=== PATIENT | male | born 1940 | race Caucasian/White ===

== ENCOUNTER 2016-03-13 16:44 | Emergency (ER) | payer OTHER ==
[~2016-03-13 16:44] MED LIST: ADV250INH INH; ALBU17IN2 INH; CLAR1TAB2 PO; CORE12.5 PO; FERR325T PO; GLIM2TAB PO; HYDR10TAB PO; IPRAINH INH; LASI40TA PO; LIPI10TA PO; LISI-538 PO; MICR10CA PO; NORV5TAB PO; ROXI1TAB2 PO; SITA50TAB PO; XARE20TA PO; ZEST1TAB7 PO
[2016-03-13 18:09] LABS: EOS # 0.1 K/mm3 (0.0-0.50); EOS % 1.5 % (0.0-3.0); LARGE UNSTAINED CELL # 0.1 K/mm3 (0.0-0.4); LARGE UNSTAINED CELL % 1.8 % (0.0-4.0); LYMPH # 1.1 K/mm3 (1.5-4.5); LYMPH % 21.1 % (24.0-44.0); MEAN CORPUSCULAR HEMOGLOBIN 30.7 pg (27.0-33.0); MEAN CORPUSCULAR HGB CONC 34.7 g/dl (32.0-36.5); MEAN CORPUSCULAR VOLUME 88.6 fl (80.0-96.0); MONO # 0.4 K/mm3 (0.0-0.8); MONO % 7.7 % (0.0-5.0); NEUTROPHILS # 3.3 K/mm3 (1.8-7.7); NEUTROPHILS % 66.8 % (36.0-66.0); PLATELET COUNT, AUTOMATED 204 k/mm3 (150-450); RED CELL DISTRIBUTION WIDTH 13.9 % (11.5-14.5); WHITE BLOOD COUNT 4.9 K/mm3 (4.0-10.0)
[2016-03-13 18:38] LABS: ALBUMIN 3.6 GM/DL (3.2-5.2); ALBUMIN/GLOBULIN RATIO 0.73 (1.00-1.93); ALKALINE PHOSPHATASE 132 U/L (45-117); ALT/SGPT 35 U/L (12-78); ANION GAP 7 MEQ/L (8-16); AST/SGOT 57 U/L (15-37); BILIRUBIN,TOTAL 0.8 MG/DL (0.2-1.0); BLOOD UREA NITROGEN 26 MG/DL (7-18); CALCIUM LEVEL 8.5 MG/DL (8.8-10.2); CARBON DIOXIDE LEVEL 33 MEQ/L (21-32); CHLORIDE LEVEL 102 MEQ/L (98-107); CREATININE FOR GFR 1.23 MG/DL (0.70-1.30); GLOMERULAR FILTRATION RATE > 60.0 (>42); GLUCOSE, FASTING 145 MG/DL (83-110); SODIUM LEVEL 142 MEQ/L (136-145); TOTAL PROTEIN 8.5 GM/DL (6.4-8.2)
[2016-03-13] MEDS ORDERED: ONDANSETRON 4 MG ORAL DISINTEGRATING TAB (S0181) As Ordered ONE (19:20)
--- NOTE | 2016-03-13 19:33 | EDDOCDS ---
Physician Documentation [facility] Name: Wallace Montanez Age: 75 yrs Sex: Male : 1940 Arrival Date: 03/13/2016 Time: 16:44 Bed Private MD: Zohreh Lira P Disposition: 03/13/16 19:09 Discharged to Home/Self Care. Impression: Patient's other noncompliance with medication regimen - unintentional overdose. - Condition is Stable. - Discharge Instructions: Overdose, Accidental. - Medication Reconciliation, Local Pharmacy Hours form. - Follow up: Zohreh Lira; When: Call to arrange an appointment; Reason: Further diagnostic work-up, Recheck today's complaints, Continuance of care. - Problem is new. - Symptoms have improved. Historical: - Allergies: PENICILLINS; CT DYE; Allopurinol; - Home Meds: 1. Osteo Bi-Flex 250-200 mg oral tab daily 2. Januvia 50 mg oral tab once daily 3. amlodipine 5 mg Oral tab 2 tabs once daily 4. Claritin 10 mg Oral tab 1 tab once daily 5. slow iron 1 tab daily 6. Vitamin D Oral 2000 units daily 7. atorvastatin 40 mg oral tab 1 tab once daily 8. hydrochlorothiazide 25 mg Oral tab 1 tab once daily 9. sotalol 120 mg Oral tab 0.5 tab 2 times per day 10. lisinopril 20 mg Oral tab BID 11. Lasix 40 mg Oral tab 1 tab 2 times per day 12. hydralazine 25 mg Oral tab 1 tab 2 times per day 13. Pradaxa 150 mg oral cap 1 cap 2 times per day 14. pantoprazole 40 mg oral TbEC 1 tab once daily 15. Tylenol PM 25-500 mg-mg/mL Oral soln 2 tablets nightly 16. Symbicort 160-4.5 mcg/actuation inhalation HFAA 2 puffs 2 times per day 17. ProAir HFA 90 mcg/actuation inhalation HFAA 1 puff every 4 hours 18. Tylenol Arthritis Pain 650 mg oral TbER 2 tabs every 8 hours as needed 19. Colcrys 0.6 mg oral tab take 2 tabs. After 1 hour take 1 more - PMHx: Renal insufficiency; Hypercholesterolemia; Hypertension; Gout; Asthma; Diabetes - NIDDM: controlled; Atrial Fib; atrial flutter; melanoma; - PSHx: Left hip fracture repair; Pacer placement; removal of extra bones from arm and chest; skin cancer removed from back; - Social history: Smoking status: Patient states former smoker of tobacco. Patient uses No barriers to communication noted, The patient speaks fluent Bulgarian, Speaks appropriately for age. - Family history: Not pertinent. - : The pt / caregiver states he / she is on anticoagulants: The pt / caregiver states he / she is on anticoagulants: Pradaxa (Dabigatran) Home medication list is obtained from the patient. - Exposure Risk Screening:: None identified. Vital Signs: 03/13 16:46 BP 161 / 70; Pulse 67; Resp 18 S; Temp 97.4(O); Pulse Ox 98% on R/A; Weight 127.01 kg / gr2 280.01 lbs (R); Height 5 ft. 8 in. (172.72 cm) (R); Pain 3/10; 18:51 BP 175 / 80; Pulse 88; Resp 18; Temp 99.2(TE); Pulse Ox 97% on R/A; Pain 2/10; jb5 16:46 Body Mass Index 42.57 (127.01 kg, 172.72 cm) gr2 MDM: 17:35 CBC with Diff Ordered. EDMS 17:35 Uric Acid Ordered. EDMS 17:35 Complete Comphrensive Metabolic Ordered. EDMS 18:02 Financial registration complete. gjb 18:20 CBC with Diff Reviewed. btw 18:40 Complete Comphrensive Metabolic Reviewed. btw 18:40 Uric Acid Reviewed. btw 19:28 Ondansetron ODT Oral Disintegrating Tablet 4 mg PO once; give 2 tabs to go home every 4 rs3 hrs PRN for Nausea ordered. Administered Medications: 19:28 Drug: Ondansetron ODT 4 mg [ondansetron 4 mg disintegrating tablet (1 tabs)] Route: PO; rs3 Signatures: Dispatcher [employer] Jamila Thomas RN RN jo3 So Aguero RN RN rs3 Juan Ramon Walter PA PA btTaniya Burciaga MTDD
--- NOTE | 2016-03-13 19:33 | EDDOCDS ---
Nurse's Notes [facility] Name: Wallace Montanez Age: 75 yrs Sex: Male : 1940 Arrival Date: 03/13/2016 Time: 16:44 Bed PR1 / 25 Private MD: Zohreh Lira P Diagnosis: Patient's other noncompliance with medication regimen-unintentional overdose Presentation: 03/13 17:00 Adult Sepsis Screening: The patient does not have new or worsening altered mentation. jo3 Patient's respiratory rate is less than 22. Systolic blood pressure is greater than 100. Patient has a qSOFA score of 0- Negative Sepsis Screen. Suicide/Homicide risk assessment- the patient denies having any suicidal and/or homicidal ideations and does not present with any other emotional, behavioral or mental health complaints. 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 Transition of care: patient was not received from another setting of care. 17:00 Acuity: JIN Level 3 jo3 17:00 Method Of Arrival: Walkin/Carried/Asstd jo3 17:22 Presenting complaint: Patient states: Took total of 9 0.6mg Colcrys pills from 230 jo3 yesterday afternoon to 8pm last night. Having some GI symptoms (anorexia, doesn't really want to drink). Poison control called in triage. Discussed with provider. Triage Assessment: 17:06 General: Appears in no apparent distress, Behavior is appropriate for age, cooperative. jo3 Pain: Denies pain. Neurological: Level of Consciousness is awake, alert, Oriented to person, place, time. Derm: Skin is pink, warm & dry. Historical: - Allergies: PENICILLINS; CT DYE; Allopurinol; - Home Meds: 1. Osteo Bi-Flex 250-200 mg oral tab daily 2. Januvia 50 mg oral tab once daily 3. amlodipine 5 mg Oral tab 2 tabs once daily 4. Claritin 10 mg Oral tab 1 tab once daily 5. slow iron 1 tab daily 6. Vitamin D Oral 2000 units daily 7. atorvastatin 40 mg oral tab 1 tab once daily 8. hydrochlorothiazide 25 mg Oral tab 1 tab once daily 9. sotalol 120 mg Oral tab 0.5 tab 2 times per day 10. lisinopril 20 mg Oral tab BID 11. Lasix 40 mg Oral tab 1 tab 2 times per day 12. hydralazine 25 mg Oral tab 1 tab 2 times per day 13. Pradaxa 150 mg oral cap 1 cap 2 times per day 14. pantoprazole 40 mg oral TbEC 1 tab once daily 15. Tylenol PM 25-500 mg-mg/mL Oral soln 2 tablets nightly 16. Symbicort 160-4.5 mcg/actuation inhalation HFAA 2 puffs 2 times per day 17. ProAir HFA 90 mcg/actuation inhalation HFAA 1 puff every 4 hours 18. Tylenol Arthritis Pain 650 mg oral TbER 2 tabs every 8 hours as needed 19. Colcrys 0.6 mg oral tab take 2 tabs. After 1 hour take 1 more - PMHx: Renal insufficiency; Hypercholesterolemia; Hypertension; Gout; Asthma; Diabetes - NIDDM: controlled; Atrial Fib; atrial flutter; melanoma; - PSHx: Left hip fracture repair; Pacer placement; removal of extra bones from arm and chest; skin cancer removed from back; - Social history: Smoking status: Patient states former smoker of tobacco. Patient uses No barriers to communication noted, The patient speaks fluent German, Speaks appropriately for age. - Family history: Not pertinent. - : The pt / caregiver states he / she is on anticoagulants: The pt / caregiver states he / she is on anticoagulants: Pradaxa (Dabigatran) Home medication list is obtained from the patient. - Exposure Risk Screening:: None identified. Screenin:29 Screening information is obtained from the patient. Fall risk: No risks identified. rs3 Assistance ADL's: requires no assistance with activities of daily living. Abuse/DV Screen: The patient / caregiver reports he/she is: not in a situation that causes fear, pain or injury. Nutritional screening: No deficits noted. Advance Directives: Currently, there is no health care proxy. There is no active DNR order. home support is adequate. Assessment: 19:28 General: General: Appears in no apparent distress, Behavior is appropriate for age, rs3 cooperative. 19:28 General: given zofran ODT as ordered. . Pain: Denies pain. Cardiovascular: Capillary rs3 refill < 3 seconds. Respiratory: Airway is patent Respiratory effort is even, unlabored. GI: Reports nausea, vomiting. Vital Signs: 16:46 BP 161 / 70; Pulse 67; Resp 18 S; Temp 97.4(O); Pulse Ox 98% on R/A; Weight 127.01 kg gr2 (R); Height 5 ft. 8 in. (172.72 cm) (R); Pain 3/10; 18:51 BP 175 / 80; Pulse 88; Resp 18; Temp 99.2(TE); Pulse Ox 97% on R/A; Pain 2/10; jb5 16:46 Body Mass Index 42.57 (127.01 kg, 172.72 cm) gr2 Vitals: 16:46 Log In Time: March 13, 2016 at 16:46. RN notified that patient meets Red Flag gr2 criteria. ED Course: 16:45 Patient visited by Cely Rodriguez. gr2 16:45 Patient moved to Waiting gr2 16:46 Zohreh Lira is Private Physician. gr2 16:48 Patient visited by Cely Rodriguez. gr2 16:48 Patient moved to Pre RCE gr2 17:00 Triage Initiated jo3 17:15 Patient visited by Jamila Hannon RN. jo3 17:16 Patient moved to Triage 1 jo3 17:21 Jamila Hannon,RN is Primary Nurse. jo3 17:25 Juan Ramon Walter PA is PHCP. btw 17:25 Soha Rajput MD is Attending Physician. btw 17:26 Patient visited by Juan Ramon Walter PA. btw 17:59 Complete Comphrensive Metabolic Sent. js15 17:59 Uric Acid Sent. js15 17:59 CBC with Diff Sent. js15 18:00 Patient moved to TR5 js15 18:41 Patient moved to PR1 / 25 js15 18:51 Patient visited by Koki Johnson PCA. jb5 18:51 Patient visited by Koki Johnson PCA. jb5 19:08 Zohreh Lira is Referral Physician. btw Administered Medications: 19:28 Drug: Ondansetron ODT 4 mg [ondansetron 4 mg disintegrating tablet (1 tabs)] Route: PO; rs3 Order Results: Lab Order: CBC with Diff; SPEC'M 03/13/16 17:58 Test: WHITE BLOOD COUNT; Value: 4.9; Range: 4.0-10.0; Units: K/mm3; Status: F Test: RED BLOOD COUNT; Value: 4.30; Range: 4.30-6.10; Units: M/mm3; Status: F Test: HEMOGLOBIN; Value: 13.2; Range: 14.0-18.0; Abnormal: Below low normal; Units: g/dl; Status: F Test: HEMATOCRIT; Value: 38.1; Range: 42.0-52.0; Abnormal: Below low normal; Units: %; Status: F Test: MEAN CORPUSCULAR VOLUME; Value: 88.6; Range: 80.0-96.0; Units: fl; Status: F Test: MEAN CORPUSCULAR HEMOGLOBIN; Value: 30.7; Range: 27.0-33.0; Units: pg; Status: F Test: MEAN CORPUSCULAR HGB CONC; Value: 34.7; Range: 32.0-36.5; Units: g/dl; Status: F Test: RED CELL DISTRIBUTION WIDTH; Value: 13.9; Range: 11.5-14.5; Units: %; Status: F Test: PLATELET COUNT, AUTOMATED; Value: 204; Range: 150-450; Units: k/mm3; Status: F Test: NEUTROPHILS %; Value: 66.8; Range: 36.0-66.0; Abnormal: Above high normal; Units: %; Status: F Test: LYMPH %; Value: 21.1; Range: 24.0-44.0; Abnormal: Below low normal; Units: %; Status: F Test: MONO %; Value: 7.7; Range: 0.0-5.0; Abnormal: Above high normal; Units: %; Status: F Test: EOS %; Value: 1.5; Range: 0.0-3.0; Units: %; Status: F Test: BASO %; Value: 1.0; Range: 0.0-1.0; Units: %; Status: F Test: LARGE UNSTAINED CELL %; Value: 1.8; Range: 0.0-4.0; Units: %; Status: F Test: NEUTROPHILS #; Value: 3.3; Range: 1.8-7.7; Units: K/mm3; Status: F Test: LYMPH #; Value: 1.1; Range: 1.5-4.5; Abnormal: Below low normal; Units: K/mm3; Status: F Test: MONO #; Value: 0.4; Range: 0.0-0.8; Units: K/mm3; Status: F Test: EOS #; Value: 0.1; Range: 0.0-0.50; Units: K/mm3; Status: F Test: BASO #; Value: 0.0; Range: 0.0-0.2; Units: K/mm3; Status: F Test: LARGE UNSTAINED CELL #; Value: 0.1; Range: 0.0-0.4; Units: K/mm3; Status: F Lab Order: Uric Acid; SPEC'M 03/13/16 17:58 Test: URIC ACID; Value: 7.0; Range: 3.5-7.2; Units: MG/DL; Status: F Lab Order: Complete Comphrensive Metabolic; SPEC'M 03/13/16 17:58 Test: GLUCOSE, FASTING; Value: 145; Range: 83-110; Abnormal: Above high normal; Units: MG/DL; Status: F Test: BLOOD UREA NITROGEN; Value: 26; Range: 7-18; Abnormal: Above high normal; Units: MG/DL; Status: F Test: CREATININE FOR GFR; Value: 1.23; Range: 0.70-1.30; Units: MG/DL; Status: F Test: GLOMERULAR FILTRATION RATE; Value: > 60.0; Range: >42; Status: F Test: SODIUM LEVEL; Value: 142; Range: 136-145; Units: MEQ/L; Status: F Test: POTASSIUM SERUM; Value: 3.0; Range: 3.5-5.1; Abnormal: Below low normal; Units: MEQ/L; Status: F Test: CHLORIDE LEVEL; Value: 102; Range: 98-107; Units: MEQ/L; Status: F Test: CARBON DIOXIDE LEVEL; Value: 33; Range: 21-32; Abnormal: Above high normal; Units: MEQ/L; Status: F Test: ANION GAP; Value: 7; Range: 8-16; Abnormal: Below low normal; Units: MEQ/L; Status: F Test: CALCIUM LEVEL; Value: 8.5; Range: 8.8-10.2; Abnormal: Below low normal; Units: MG/DL; Status: F Test: AST/SGOT; Value: 57; Range: 15-37; Abnormal: Above high normal; Units: U/L; Status: F Test: ALT/SGPT; Value: 35; Range: 12-78; Units: U/L; Status: F Test: ALKALINE PHOSPHATASE; Value: 132; Range: 45-117; Abnormal: Above high normal; Units: U/L; Status: F Test: BILIRUBIN,TOTAL; Value: 0.8; Range: 0.2-1.0; Units: MG/DL; Status: F Test: TOTAL PROTEIN; Value: 8.5; Range: 6.4-8.2; Abnormal: Above high normal; Units: GM/DL; Status: F Test: ALBUMIN; Value: 3.6; Range: 3.2-5.2; Units: GM/DL; Status: F Test: ALBUMIN/GLOBULIN RATIO; Value: 0.73; Range: 1.00-1.93; Abnormal: Below low normal; Status: F Test Note: ; Units are mL/min/1.73 m2 Chronic Kidney Disease Staging per NKF: Stage I & II GFR >=60 Normal to Mildly Decreased Stage III GFR 30-59 Moderately Decreased Stage IV GFR 15-29 Severely Decreased Stage V GFR <15 Very Little GFR Left ESRD GFR <15 on AGENT SPA DESK Outcome: 19:09 Discharge ordered by Provider. btw 19:32 Patient left the ED. rs3 Signatures: Koki Johnson PCA EGG PASTEURIZER jb5 Jamila Hannon RN RN jo3 So Aguero RN RN rs3 Juan Ramon Walter PA PA btw Cely Rodriguez gr2 Oneyda Coleman,RN RN js15 Corrections: (The following items were deleted from the chart) 19:29 17:21 General: momo rs3 MTDD
--- NOTE | 2016-03-15 20:33 | EDDOCDS ---
Physician Documentation [facility] Name: Wallace Montanez Age: 75 yrs Sex: Male : 1940 Arrival Date: 03/13/2016 Time: 16:44 Bed Private MD: Zohreh Lira P Disposition: 03/13/16 19:09 Discharged to Home/Self Care. Impression: Patient's other noncompliance with medication regimen - unintentional overdose. - Condition is Stable. - Discharge Instructions: Overdose, Accidental. - Medication Reconciliation, Local Pharmacy Hours form. - Follow up: Zohreh Lira; When: Call to arrange an appointment; Reason: Further diagnostic work-up, Recheck today's complaints, Continuance of care. - Problem is new. - Symptoms have improved. Historical: - Allergies: PENICILLINS; CT DYE; Allopurinol; - Home Meds: 1. Osteo Bi-Flex 250-200 mg oral tab daily 2. Januvia 50 mg oral tab once daily 3. amlodipine 5 mg Oral tab 2 tabs once daily 4. Claritin 10 mg Oral tab 1 tab once daily 5. slow iron 1 tab daily 6. Vitamin D Oral 2000 units daily 7. atorvastatin 40 mg oral tab 1 tab once daily 8. hydrochlorothiazide 25 mg Oral tab 1 tab once daily 9. sotalol 120 mg Oral tab 0.5 tab 2 times per day 10. lisinopril 20 mg Oral tab BID 11. Lasix 40 mg Oral tab 1 tab 2 times per day 12. hydralazine 25 mg Oral tab 1 tab 2 times per day 13. Pradaxa 150 mg oral cap 1 cap 2 times per day 14. pantoprazole 40 mg oral TbEC 1 tab once daily 15. Tylenol PM 25-500 mg-mg/mL Oral soln 2 tablets nightly 16. Symbicort 160-4.5 mcg/actuation inhalation HFAA 2 puffs 2 times per day 17. ProAir HFA 90 mcg/actuation inhalation HFAA 1 puff every 4 hours 18. Tylenol Arthritis Pain 650 mg oral TbER 2 tabs every 8 hours as needed 19. Colcrys 0.6 mg oral tab take 2 tabs. After 1 hour take 1 more - PMHx: Renal insufficiency; Hypercholesterolemia; Hypertension; Gout; Asthma; Diabetes - NIDDM: controlled; Atrial Fib; atrial flutter; melanoma; - PSHx: Left hip fracture repair; Pacer placement; removal of extra bones from arm and chest; skin cancer removed from back; - Social history: Smoking status: Patient states former smoker of tobacco. Patient uses No barriers to communication noted, The patient speaks fluent Kazakh, Speaks appropriately for age. - Family history: Not pertinent. - : The pt / caregiver states he / she is on anticoagulants: The pt / caregiver states he / she is on anticoagulants: Pradaxa (Dabigatran) Home medication list is obtained from the patient. - Exposure Risk Screening:: None identified. Vital Signs: 03/13 16:46 BP 161 / 70; Pulse 67; Resp 18 S; Temp 97.4(O); Pulse Ox 98% on R/A; Weight 127.01 kg / gr2 280.01 lbs (R); Height 5 ft. 8 in. (172.72 cm) (R); Pain 3/10; 18:51 BP 175 / 80; Pulse 88; Resp 18; Temp 99.2(TE); Pulse Ox 97% on R/A; Pain 2/10; jb5 16:46 Body Mass Index 42.57 (127.01 kg, 172.72 cm) gr2 MDM: 17:35 CBC with Diff Ordered. EDMS 17:35 Uric Acid Ordered. EDMS 17:35 Complete Comphrensive Metabolic Ordered. EDMS 18:02 Financial registration complete. gjb 18:20 CBC with Diff Reviewed. btw 18:40 Complete Comphrensive Metabolic Reviewed. btw 18:40 Uric Acid Reviewed. btw 19:28 Ondansetron ODT Oral Disintegrating Tablet 4 mg PO once; give 2 tabs to go home every 4 rs3 hrs PRN for Nausea ordered. 19:34 [facility] was scanned into [employer] and attached to record. gjb 03/14 06:59 T-Sheet-- Draft Copy was scanned into [employer] and attached to record. [facility] Administered Medications: 03/13 19:28 Drug: Ondansetron ODT 4 mg [ondansetron 4 mg disintegrating tablet (1 tabs)] Route: PO; rs3 Signatures: Dispatcher [employer] EDMS Jamila Hannon RN RN So Bansal RN RN rs3 Juan Ramon Walter PA PA btw Beck, Gabriela gjb Hoffert, Sarah seh The chart was reviewed and I authenticate all verbal orders and agree with the evaluation and treatment provided.Attachments: 19:34 [facility] Payment Agreement gjb 03/14 06:59 T-Sheet-- Draft Copy [facility] Chart Complete MTDD
--- NOTE | 2016-03-15 20:33 | EDDOCDS ---
Nurse's Notes [facility] Name: Wallace Montanez Age: 75 yrs Sex: Male : 1940 Arrival Date: 03/13/2016 Time: 16:44 Bed PR1 / 25 Private MD: Zorheh Lira P Diagnosis: Patient's other noncompliance with medication regimen-unintentional overdose Presentation: 03/13 17:00 Adult Sepsis Screening: The patient does not have new or worsening altered mentation. jo3 Patient's respiratory rate is less than 22. Systolic blood pressure is greater than 100. Patient has a qSOFA score of 0- Negative Sepsis Screen. Suicide/Homicide risk assessment- the patient denies having any suicidal and/or homicidal ideations and does not present with any other emotional, behavioral or mental health complaints. Status: Patient is not a hr shared services consultant or dependent. Transition of care: patient was not received from another setting of care. 17:00 Acuity: JIN Level 3 jo3 17:00 Method Of Arrival: Walkin/Carried/Asstd jo3 17:22 Presenting complaint: Patient states: Took total of 9 0.6mg Colcrys pills from 230 jo3 yesterday afternoon to 8pm last night. Having some GI symptoms (anorexia, doesn't really want to drink). Poison control called in triage. Discussed with provider. Triage Assessment: 17:06 General: Appears in no apparent distress, Behavior is appropriate for age, cooperative. jo3 Pain: Denies pain. Neurological: Level of Consciousness is awake, alert, Oriented to person, place, time. Derm: Skin is pink, warm & dry. Historical: - Allergies: PENICILLINS; CT DYE; Allopurinol; - Home Meds: 1. Osteo Bi-Flex 250-200 mg oral tab daily 2. Januvia 50 mg oral tab once daily 3. amlodipine 5 mg Oral tab 2 tabs once daily 4. Claritin 10 mg Oral tab 1 tab once daily 5. slow iron 1 tab daily 6. Vitamin D Oral 2000 units daily 7. atorvastatin 40 mg oral tab 1 tab once daily 8. hydrochlorothiazide 25 mg Oral tab 1 tab once daily 9. sotalol 120 mg Oral tab 0.5 tab 2 times per day 10. lisinopril 20 mg Oral tab BID 11. Lasix 40 mg Oral tab 1 tab 2 times per day 12. hydralazine 25 mg Oral tab 1 tab 2 times per day 13. Pradaxa 150 mg oral cap 1 cap 2 times per day 14. pantoprazole 40 mg oral TbEC 1 tab once daily 15. Tylenol PM 25-500 mg-mg/mL Oral soln 2 tablets nightly 16. Symbicort 160-4.5 mcg/actuation inhalation HFAA 2 puffs 2 times per day 17. ProAir HFA 90 mcg/actuation inhalation HFAA 1 puff every 4 hours 18. Tylenol Arthritis Pain 650 mg oral TbER 2 tabs every 8 hours as needed 19. Colcrys 0.6 mg oral tab take 2 tabs. After 1 hour take 1 more - PMHx: Renal insufficiency; Hypercholesterolemia; Hypertension; Gout; Asthma; Diabetes - NIDDM: controlled; Atrial Fib; atrial flutter; melanoma; - PSHx: Left hip fracture repair; Pacer placement; removal of extra bones from arm and chest; skin cancer removed from back; - Social history: Smoking status: Patient states former smoker of tobacco. Patient uses No barriers to communication noted, The patient speaks fluent Romanian, Speaks appropriately for age. - Family history: Not pertinent. - : The pt / caregiver states he / she is on anticoagulants: The pt / caregiver states he / she is on anticoagulants: Pradaxa (Dabigatran) Home medication list is obtained from the patient. - Exposure Risk Screening:: None identified. Screenin:29 Screening information is obtained from the patient. Fall risk: No risks identified. rs3 Assistance ADL's: requires no assistance with activities of daily living. Abuse/DV Screen: The patient / caregiver reports he/she is: not in a situation that causes fear, pain or injury. Nutritional screening: No deficits noted. Advance Directives: Currently, there is no health care proxy. There is no active DNR order. home support is adequate. Assessment: 19:28 General: General: Appears in no apparent distress, Behavior is appropriate for age, rs3 cooperative. 19:28 General: given zofran ODT as ordered. . Pain: Denies pain. Cardiovascular: Capillary rs3 refill < 3 seconds. Respiratory: Airway is patent Respiratory effort is even, unlabored. GI: Reports nausea, vomiting. Vital Signs: 16:46 BP 161 / 70; Pulse 67; Resp 18 S; Temp 97.4(O); Pulse Ox 98% on R/A; Weight 127.01 kg gr2 (R); Height 5 ft. 8 in. (172.72 cm) (R); Pain 3/10; 18:51 BP 175 / 80; Pulse 88; Resp 18; Temp 99.2(TE); Pulse Ox 97% on R/A; Pain 2/10; jb5 16:46 Body Mass Index 42.57 (127.01 kg, 172.72 cm) gr2 Vitals: 16:46 Log In Time: March 13, 2016 at 16:46. RN notified that patient meets Red Flag gr2 criteria. ED Course: 16:45 Patient visited by Cely Rodriguez. gr2 16:45 Patient moved to Waiting gr2 16:46 Zohreh Lira is Private Physician. gr2 16:48 Patient visited by Cely Rodriguez. gr2 16:48 Patient moved to Pre RCE gr2 17:00 Triage Initiated jo3 17:15 Patient visited by Jamila Hannon RN. jo3 17:16 Patient moved to Triage 1 jo3 17:21 Jamila Hannon,RN is Primary Nurse. jo3 17:25 Juan Ramon Walter PA is PHCP. btw 17:25 Soha Rajput MD is Attending Physician. btw 17:26 Patient visited by Juan Ramon Walter PA. btw 17:59 Complete Comphrensive Metabolic Sent. js15 17:59 Uric Acid Sent. js15 17:59 CBC with Diff Sent. js15 18:00 Patient moved to TR5 js15 18:41 Patient moved to PR1 / 25 js15 18:51 Patient visited by Koki Johnson PCA. jb5 18:51 Patient visited by Koik Johnson PCA. jb5 19:08 Zohreh Lira is Referral Physician. btw 19:33 Patient name changed from Wallace\S\\S\Tarik\S\ to Wallace\S\ \S\Tarik. EDMS 19:34 [facility] Payment Agreement was scanned into [employer] and attached to record. gjb 03/14 06:59 T-Sheet-- Draft Copy was scanned into [employer] and attached to record. seignacio Administered Medications: 03/13 19:28 Drug: Ondansetron ODT 4 mg [ondansetron 4 mg disintegrating tablet (1 tabs)] Route: PO; rs3 Order Results: Lab Order: CBC with Diff; SPEC'M 03/13/16 17:58 Test: WHITE BLOOD COUNT; Value: 4.9; Range: 4.0-10.0; Units: K/mm3; Status: F Test: RED BLOOD COUNT; Value: 4.30; Range: 4.30-6.10; Units: M/mm3; Status: F Test: HEMOGLOBIN; Value: 13.2; Range: 14.0-18.0; Abnormal: Below low normal; Units: g/dl; Status: F Test: HEMATOCRIT; Value: 38.1; Range: 42.0-52.0; Abnormal: Below low normal; Units: %; Status: F Test: MEAN CORPUSCULAR VOLUME; Value: 88.6; Range: 80.0-96.0; Units: fl; Status: F Test: MEAN CORPUSCULAR HEMOGLOBIN; Value: 30.7; Range: 27.0-33.0; Units: pg; Status: F Test: MEAN CORPUSCULAR HGB CONC; Value: 34.7; Range: 32.0-36.5; Units: g/dl; Status: F Test: RED CELL DISTRIBUTION WIDTH; Value: 13.9; Range: 11.5-14.5; Units: %; Status: F Test: PLATELET COUNT, AUTOMATED; Value: 204; Range: 150-450; Units: k/mm3; Status: F Test: NEUTROPHILS %; Value: 66.8; Range: 36.0-66.0; Abnormal: Above high normal; Units: %; Status: F Test: LYMPH %; Value: 21.1; Range: 24.0-44.0; Abnormal: Below low normal; Units: %; Status: F Test: MONO %; Value: 7.7; Range: 0.0-5.0; Abnormal: Above high normal; Units: %; Status: F Test: EOS %; Value: 1.5; Range: 0.0-3.0; Units: %; Status: F Test: BASO %; Value: 1.0; Range: 0.0-1.0; Units: %; Status: F Test: LARGE UNSTAINED CELL %; Value: 1.8; Range: 0.0-4.0; Units: %; Status: F Test: NEUTROPHILS #; Value: 3.3; Range: 1.8-7.7; Units: K/mm3; Status: F Test: LYMPH #; Value: 1.1; Range: 1.5-4.5; Abnormal: Below low normal; Units: K/mm3; Status: F Test: MONO #; Value: 0.4; Range: 0.0-0.8; Units: K/mm3; Status: F Test: EOS #; Value: 0.1; Range: 0.0-0.50; Units: K/mm3; Status: F Test: BASO #; Value: 0.0; Range: 0.0-0.2; Units: K/mm3; Status: F Test: LARGE UNSTAINED CELL #; Value: 0.1; Range: 0.0-0.4; Units: K/mm3; Status: F Lab Order: Uric Acid; SPEC'M 03/13/16 17:58 Test: URIC ACID; Value: 7.0; Range: 3.5-7.2; Units: MG/DL; Status: F Lab Order: Complete Comphrensive Metabolic; SPEC'M 03/13/16 17:58 Test: GLUCOSE, FASTING; Value: 145; Range: 83-110; Abnormal: Above high normal; Units: MG/DL; Status: F Test: BLOOD UREA NITROGEN; Value: 26; Range: 7-18; Abnormal: Above high normal; Units: MG/DL; Status: F Test: CREATININE FOR GFR; Value: 1.23; Range: 0.70-1.30; Units: MG/DL; Status: F Test: GLOMERULAR FILTRATION RATE; Value: > 60.0; Range: >42; Status: F Test: SODIUM LEVEL; Value: 142; Range: 136-145; Units: MEQ/L; Status: F Test: POTASSIUM SERUM; Value: 3.0; Range: 3.5-5.1; Abnormal: Below low normal; Units: MEQ/L; Status: F Test: CHLORIDE LEVEL; Value: 102; Range: 98-107; Units: MEQ/L; Status: F Test: CARBON DIOXIDE LEVEL; Value: 33; Range: 21-32; Abnormal: Above high normal; Units: MEQ/L; Status: F Test: ANION GAP; Value: 7; Range: 8-16; Abnormal: Below low normal; Units: MEQ/L; Status: F Test: CALCIUM LEVEL; Value: 8.5; Range: 8.8-10.2; Abnormal: Below low normal; Units: MG/DL; Status: F Test: AST/SGOT; Value: 57; Range: 15-37; Abnormal: Above high normal; Units: U/L; Status: F Test: ALT/SGPT; Value: 35; Range: 12-78; Units: U/L; Status: F Test: ALKALINE PHOSPHATASE; Value: 132; Range: 45-117; Abnormal: Above high normal; Units: U/L; Status: F Test: BILIRUBIN,TOTAL; Value: 0.8; Range: 0.2-1.0; Units: MG/DL; Status: F Test: TOTAL PROTEIN; Value: 8.5; Range: 6.4-8.2; Abnormal: Above high normal; Units: GM/DL; Status: F Test: ALBUMIN; Value: 3.6; Range: 3.2-5.2; Units: GM/DL; Status: F Test: ALBUMIN/GLOBULIN RATIO; Value: 0.73; Range: 1.00-1.93; Abnormal: Below low normal; Status: F Test Note: ; Units are mL/min/1.73 m2 Chronic Kidney Disease Staging per NKF: Stage I & II GFR >=60 Normal to Mildly Decreased Stage III GFR 30-59 Moderately Decreased Stage IV GFR 15-29 Severely Decreased Stage V GFR <15 Very Little GFR Left ESRD GFR <15 on PHARMACY INTERN Outcome: 19:09 Discharge ordered by Provider. btw 19:32 Patient left the ED. rs3 Signatures: Dispatcher [employer] EDKoki Rahman PCA MEDIA COORDINATOR jb5 Jamila Hannon RN RN So Bansal RN RN rs3 Juan Ramon Walter PA PA btw Cely Rodriguez gr2 Oneyda Coleman RN RN Taniya Byrne Sarah seh Corrections: (The following items were deleted from the chart) 19:29 17:21 General: jo3 rs3 Chart Complete MTDD
--- NOTE | 2016-03-15 20:33 | EDDOCDS ---
Physician Documentation [facility] Name: Wallace Montanez Age: 75 yrs Sex: Male : 1940 Arrival Date: 03/13/2016 Time: 16:44 Bed Private MD: Zohreh Lira P Disposition: 03/13/16 19:09 Discharged to Home/Self Care. Impression: Patient's other noncompliance with medication regimen - unintentional overdose. - Condition is Stable. - Discharge Instructions: Overdose, Accidental. - Medication Reconciliation, Local Pharmacy Hours form. - Follow up: Zohreh Lira; When: Call to arrange an appointment; Reason: Further diagnostic work-up, Recheck today's complaints, Continuance of care. - Problem is new. - Symptoms have improved. Historical: - Allergies: PENICILLINS; CT DYE; Allopurinol; - Home Meds: 1. Osteo Bi-Flex 250-200 mg oral tab daily 2. Januvia 50 mg oral tab once daily 3. amlodipine 5 mg Oral tab 2 tabs once daily 4. Claritin 10 mg Oral tab 1 tab once daily 5. slow iron 1 tab daily 6. Vitamin D Oral 2000 units daily 7. atorvastatin 40 mg oral tab 1 tab once daily 8. hydrochlorothiazide 25 mg Oral tab 1 tab once daily 9. sotalol 120 mg Oral tab 0.5 tab 2 times per day 10. lisinopril 20 mg Oral tab BID 11. Lasix 40 mg Oral tab 1 tab 2 times per day 12. hydralazine 25 mg Oral tab 1 tab 2 times per day 13. Pradaxa 150 mg oral cap 1 cap 2 times per day 14. pantoprazole 40 mg oral TbEC 1 tab once daily 15. Tylenol PM 25-500 mg-mg/mL Oral soln 2 tablets nightly 16. Symbicort 160-4.5 mcg/actuation inhalation HFAA 2 puffs 2 times per day 17. ProAir HFA 90 mcg/actuation inhalation HFAA 1 puff every 4 hours 18. Tylenol Arthritis Pain 650 mg oral TbER 2 tabs every 8 hours as needed 19. Colcrys 0.6 mg oral tab take 2 tabs. After 1 hour take 1 more - PMHx: Renal insufficiency; Hypercholesterolemia; Hypertension; Gout; Asthma; Diabetes - NIDDM: controlled; Atrial Fib; atrial flutter; melanoma; - PSHx: Left hip fracture repair; Pacer placement; removal of extra bones from arm and chest; skin cancer removed from back; - Social history: Smoking status: Patient states former smoker of tobacco. Patient uses No barriers to communication noted, The patient speaks fluent Korean, Speaks appropriately for age. - Family history: Not pertinent. - : The pt / caregiver states he / she is on anticoagulants: The pt / caregiver states he / she is on anticoagulants: Pradaxa (Dabigatran) Home medication list is obtained from the patient. - Exposure Risk Screening:: None identified. Vital Signs: 03/13 16:46 BP 161 / 70; Pulse 67; Resp 18 S; Temp 97.4(O); Pulse Ox 98% on R/A; Weight 127.01 kg / gr2 280.01 lbs (R); Height 5 ft. 8 in. (172.72 cm) (R); Pain 3/10; 18:51 BP 175 / 80; Pulse 88; Resp 18; Temp 99.2(TE); Pulse Ox 97% on R/A; Pain 2/10; jb5 16:46 Body Mass Index 42.57 (127.01 kg, 172.72 cm) gr2 MDM: 17:35 CBC with Diff Ordered. EDMS 17:35 Uric Acid Ordered. EDMS 17:35 Complete Comphrensive Metabolic Ordered. EDMS 18:02 Financial registration complete. gjb 18:20 CBC with Diff Reviewed. btw 18:40 Complete Comphrensive Metabolic Reviewed. btw 18:40 Uric Acid Reviewed. btw 19:28 Ondansetron ODT Oral Disintegrating Tablet 4 mg PO once; give 2 tabs to go home every 4 rs3 hrs PRN for Nausea ordered. 19:34 [id number] Payment Agreement was scanned into [employer] and attached to record. gjb 03/14 06:59 T-Sheet-- Draft Copy was scanned into [employer] and attached to record. [facility] Administered Medications: 03/13 19:28 Drug: Ondansetron ODT 4 mg [ondansetron 4 mg disintegrating tablet (1 tabs)] Route: PO; rs3 Signatures: Dispatcher [facility] EDMS Jamila Hannon RN RN So Bansal RN RN rs3 Juan Ramon Walter PA PA btw Beck, Gabriela gjb Hoffert, Sarah seh The chart was reviewed and I authenticate all verbal orders and agree with the evaluation and treatment provided.Attachments: 19:34 [facility] Payment Agreement gjb 03/14 06:59 T-Sheet-- Draft Copy [facility] Chart Complete MTDD
== END 2016-03-13 19:32 | disposition home or self-care (01) ==
LOC: M ED 16:44
DX: Z91.14 Patient's other noncompliance with medication regimen (principal); T50.4X1A Poisoning by drugs affecting uric acid metabolism, accidental (unintentional), initial encounter; Y92.9 Unspecified place or not applicable; Y93.9 Activity, unspecified; N28.9 Disorder of kidney and ureter, unspecified; E78.00 Pure hypercholesterolemia, unspecified; I10 Essential (primary) hypertension; M10.9 Gout, unspecified; J45.909 Unspecified asthma, uncomplicated; E11.9 Type 2 diabetes mellitus without complications; I48.91 Unspecified atrial fibrillation; I48.92 Unspecified atrial flutter; Z85.820 Personal history of malignant melanoma of skin; Z95.0 Presence of cardiac pacemaker; Z87.891 Personal history of nicotine dependence; Z79.01 Long term (current) use of anticoagulants; Z79.899 Other long term (current) drug therapy; Z88.0 Allergy status to penicillin; Z88.8 Allergy status to other drugs, medicaments and biological substances; Z91.041 Radiographic dye allergy status

== ENCOUNTER → 2019-02-23 | Outpatient (REF) | payer OTHER ==
[~2019-02-23] MED LIST changes: +BUME2TAB3 PO; +CALC1CAP31 PO; +CARV25TA PO; +DOXY100C PO; +FAMO20TA PO; +FERR1TAB8 PO; -FERR325T PO; -GLIM2TAB PO; +GLIM2TAB2 PO; +GLUC1TAB58 PO; +HYDR-2773 PO; +HYDR-3910 PO; +HYDR-3911 PO; -HYDR10TAB PO; +ISOS30TA4 PO; -LASI40TA PO; +LASI40TA9 PO; +OSTETAB4 PO; +POTA20TA6 PO; +PRAD150C6 PO; +PROV108A INH; +SM LTAB5 PO; +SYMB16INH INH; +ULOR80TA PO
[2019-02-23 19:19] LABS: ALBUMIN 3.6 GM/DL (3.2-5.2); CALCIUM LEVEL 8.3 MG/DL (8.8-10.2); CREATININE FOR GFR 1.49 MG/DL (0.70-1.30); GLOMERULAR FILTRATION RATE 48.7 (>42); PHOSPHORUS LEVEL 3.7 MG/DL (2.5-4.9); POTASSIUM SERUM 3.6 MEQ/L (3.5-5.1); URIC ACID 4.6 MG/DL (3.5-7.2)
== END ==
LOC: M LAB REF 17:21
PROVIDERS: ATTEND Internal Medicine Nephrology
DX: N17.9 Acute kidney failure, unspecified (principal); M1A.30X0 Chronic gout due to renal impairment, unspecified site, without tophus (tophi)

== ENCOUNTER 2019-04-21 08:39 | Outpatient (RCR) | payer OTHER ==
[~2019-04-21] VITALS: Ht 172.7 cm; Wt 254.4 kg
[~2019-04-21 08:39] MED LIST changes: -GLIM2TAB2 PO; +GLIM2TAB4 PO
[2019-04-21] MEDS ORDERED: ENTR1TAB PO (09:14)
[2019-04-21] MEDS ORDERED: TYLE650T35 PO (09:14)
[2019-04-21] MEDS ORDERED: ASPI81TA85 PO (09:14)
[2019-04-21] MEDS ORDERED: SYMB16INH INH (09:14)
[2019-04-21] MEDS ORDERED: WARF-20 PO (09:14)
[2019-04-21] MEDS ORDERED: FOLI1TAB11 PO (09:14)
[2019-04-21] MEDS ORDERED: PROAAER10 INH (09:14)
[2019-04-21] MEDS ORDERED: MULTCAP PO (09:14)
[2019-04-21] MEDS ORDERED: CARV12.5 PO (09:14)
[2019-04-21] MEDS ORDERED: SPIR-10 PO (09:14)
[2019-04-21] MEDS ORDERED: WARF-58 PO (09:14)
[2019-04-21] MEDS ORDERED: Tylenol PM PO (09:16)
[2019-04-21 10:44] VITALS: BP 110/60
--- NOTE | 2019-04-21 13:28 | CARECAPL ---
Assessment Account #s: Initial Assessment General Diagnoses: CABG, MVR Date of event: Mar 08, 2019 Physician: Camilo Philip Allergies: Coded Allergies: allopurinol (Verified Allergy, Mild, Itching, 06/14/18) Penicillins (Verified Allergy, Unknown, 06/14/18) iodine (Verified Adverse Reaction, Intermediate, Vomiting, 06/14/18) Date Entered Program: Apr 21, 2019 Risk strat for cardiac event: High Exercise Date: Apr 21, 2019 Assessment: Initial Assessment Exercise Prescription Plan to build endurance and strength through a monitored exercise program and to be educated about cardiac health risks Modalities initiated: Treadmill, Cardio-Strider, Nustep, Arm Aerometer, Dumbells Duration (Minutes) 30 - 60 minutes total exercise a day. 15 - 20 work intervals in minutes. PRN rest intervals in minutes. Functional Capacity Goal Sustained Metabolic Equivalent of a task (MET) goal of 3.0 for 15 minutes. Intensity: 3-Moderate Progression (METS) Increase by: .5 METS every: 2-3 sessions Angina with ex: No Target Heart Rate rest +35-40 Reps: 6-8 Medications Scheduled Aspirin (Aspir 81), 81 MG PO DAILY, (Reported) Atorvastatin Calcium (Lipitor), 40 MG PO QHS, (Reported) Budesonide/Formoterol (Symbicort 160-4.5 Mcg Inhaler), 2 PUFF INH BID, (Reported) Bumetanide (Bumetanide), 2 MG PO BID, (Reported) Calcitriol (Calcitriol), 0.25 MCG PO DAILY, (Reported) Carvedilol (Carvedilol), 12.5 MG PO BID, (Reported) Famotidine (Famotidine), 20 MG PO DAILY, (Reported) Ferrous Sulfate (Ferrous Sulfate), 325 MG PO QAM, (Reported) Folic Acid (Folic Acid), 1 MG PO DAILY, (Reported) Glucosamine/D3/Boswellia Didi (Osteo Bi-Flex Tablet), 2 EACH PO QAM, (Reported) Loratadine (Loratadine), 10 MG PO DAILY, (Reported) Multivitamin (Multivitamins), 1 CAP PO DAILY, (Reported) Potassium Chloride (Potassium Chloride), 20 MEQ PO BID, (Reported) Sacubitril/Valsartan (Entresto 24 mg-26 mg Tablet), 1 TAB PO BID, (Reported) Sitagliptin (Januvia), 50 MG PO QAM, (Reported) Spironolactone (Spironolactone), 25 MG PO DAILY, (Reported) Warfarin Sodium (Warfarin Sodium), 3 MG PO QPM, (Reported) [Tylenol PM], 2 TAB PO QHS, (Reported) Scheduled PRN Acetaminophen (Tylenol Arthritis), 650 MG PO Q8HP PRN for PAIN, (Reported) Albuterol Sulfate (Proair Hfa), 2 PUFF INH Q4-6HP PRN for wheezing, (Reported) Discontinued Medications Albuterol Sulfate (Proventil Hfa), 2 PUFF INH Q4H, (Reported) Discontinued Reason: Pt states not taking Budesonide/Formoterol (Symbicort 160-4.5 Mcg Inhaler), 2 PUFF INH BID, (Reported) Discontinued Reason: Pt states not taking Carvedilol (Carvedilol), 25 MG PO BID, (Reported) Discontinued Reason: Pt states not taking Dabigatran Etexilate Mesylate (Pradaxa), 150 MG PO BID, (Reported) Discontinued Reason: Pt states not taking Doxycycline Hyclate (Doxycycline Hyclate), 100 MG PO BID, (Reported) Discontinued Reason: Pt states not taking Febuxostat (Uloric), 80 MG PO DAILY, (Reported) Discontinued Reason: Pt states not taking Hydralazine HCl (Hydralazine HCl), 25 MG PO BID, (Reported) Discontinued Reason: Pt states not taking Hydralazine HCl (Hydralazine HCl), 50 MG PO BID, (Reported) Discontinued Reason: Pt states not taking Isosorbide Mononitrate (Isosorbide Mononitrate ER), 30 MG PO QAM, (Reported) Discontinued Reason: Pt states not taking Warfarin Sodium (Warfarin Sodium), 4 MG PO, (Reported) Discontinued Reason: Pt states not taking Current BP 110/60 Med Change: Yes Target Goals Individual exercise Rx (1) BP 140/90 or 130/80 if DM or CKD (1) Aerobic active 30+min 5 days per week (1) Nutrition Date: Apr 21, 2019 Assessment: Initial Assessment Stages of change: Preperation Lipids Total Cholesterol (have requested labs from Dr Philip office) Lipid- med/supplement lipitor Diabetes Diabetes: Yes (type II) HbA1c (%): 5.6 Diabetes medication Samantha Monitor Blood Sugar at home: Yes Frequency just occasionally Weight Management Weight (lbs): 251.2 Weight goal: 220 Special Diet: low salt Vitamin/Supplements: Multivitamin Alcohol: weekly Alcohol Type: beer, wine Alcohol Amount: 3-4 Diet Access Tool: Rate your plate Score: 47 Target goal LDL-C<100 if triglycerides are >200 Non-HDL-C should be <130 (1) LDL-C<70 for high risk patients (4) HbA1c<7% (1) BMI<25 Waist cir<40in M/<35in F (1) Education Date: Apr 21, 2019 Assessment: Initial Assessment Learning Barriers: ready Knowledge Test Score: 7 Stages of change: Preperation Quit: >6 months (2009) Tobacco Use Date quit: Apr 21, 2019 Cigarettes smoked per day: 20 Smokeless tobacco: No Target Goals Complete cessation of tobacco use (1). Psychosocial Date: Apr 21, 2019 Assessment: Initial Assessment Psych Test (Initial/Discharge) Tool Used: Other Score: 8 Stages of change: Preperation Target Goal Assess presence or absence of depression using a valid screening tool (1). Maximize coping skills (2). Positive support system (2). Patient/Program Goal Preventative Medication: Yes Aspirin, Yes Beta blockade, Yes Statin/OTR lipid Lowering Fall Risk Assess: Yes Assisstive Device: cane Provider Assessment Provider Assessment: Proceed with rehab Penelope Cardenas RN Apr 21, 2019 13:28
[2019-04-27 12:41] VITALS: BP 124/80
[2019-04-27 13:28] VITALS: BP 158/86
[2019-04-27 13:34] VITALS: BP 124/80
[2019-04-27 13:47] VITALS: BP 128/80
--- NOTE | 2019-05-04 10:03 | CARECAPL ---
General Allergies: Coded Allergies: allopurinol (Verified Allergy, Mild, Itching, 06/14/18) Penicillins (Verified Allergy, Unknown, 06/14/18) iodine (Verified Adverse Reaction, Intermediate, Vomiting, 06/14/18) Exercise Prescription Duration (Minutes) 30 - 60 minutes total exercise a day. 15 - 20 work intervals in minutes. PRN rest intervals in minutes. Functional Capacity Goal Sustained Metabolic Equivalent of a task (MET) goal of for minutes. Progression (METS) Increase by: METS every: sessions Medications Scheduled Aspirin (Aspir 81), 81 MG PO DAILY, (Reported) Atorvastatin Calcium (Lipitor), 40 MG PO QHS, (Reported) Budesonide/Formoterol (Symbicort 160-4.5 Mcg Inhaler), 2 PUFF INH BID, (Reported) Bumetanide (Bumetanide), 2 MG PO BID, (Reported) Calcitriol (Calcitriol), 0.25 MCG PO DAILY, (Reported) Carvedilol (Carvedilol), 12.5 MG PO BID, (Reported) Famotidine (Famotidine), 20 MG PO DAILY, (Reported) Ferrous Sulfate (Ferrous Sulfate), 325 MG PO QAM, (Reported) Folic Acid (Folic Acid), 1 MG PO DAILY, (Reported) Glucosamine/D3/Boswellia Didi (Osteo Bi-Flex Tablet), 2 EACH PO QAM, (Reported) Loratadine (Loratadine), 10 MG PO DAILY, (Reported) Multivitamin (Multivitamins), 1 CAP PO DAILY, (Reported) Potassium Chloride (Potassium Chloride), 20 MEQ PO BID, (Reported) Sacubitril/Valsartan (Entresto 24 mg-26 mg Tablet), 1 TAB PO BID, (Reported) Sitagliptin (Januvia), 50 MG PO QAM, (Reported) Spironolactone (Spironolactone), 25 MG PO DAILY, (Reported) Warfarin Sodium (Warfarin Sodium), 3 MG PO QPM, (Reported) [Tylenol PM], 2 TAB PO QHS, (Reported) Scheduled PRN Acetaminophen (Tylenol Arthritis), 650 MG PO Q8HP PRN for PAIN, (Reported) Albuterol Sulfate (Proair Hfa), 2 PUFF INH Q4-6HP PRN for wheezing, (Reported) Target Goals Individual exercise Rx (1) BP 140/90 or 130/80 if DM or CKD (1) Aerobic active 30+min 5 days per week (1) Target goal LDL-C<100 if triglycerides are >200 Non-HDL-C should be <130 (1) LDL-C<70 for high risk patients (4) HbA1c<7% (1) BMI<25 Waist cir<40in M/<35in F (1) Target Goals Complete cessation of tobacco use (1). Target Goal Assess presence or absence of depression using a valid screening tool (1). Maximize coping skills (2). Positive support system (2). Provider Assessment Provider Assessment: Please add/change: (Patient on hold d/t Covid-19.) Magali Jones RN May 04, 2019 10:03
== END 2019-05-16 ==
LOC: M CR 08:39
PROVIDERS: ATTEND Internal Medicine Cardiovascular Disease
DX: Z95.1 Presence of aortocoronary bypass graft (principal); Z51.89 Encounter for other specified aftercare

== ENCOUNTER → 2020-11-12 | Outpatient (REF) | payer MEDICARE, OTHER ==
[~2020-11-12] MED LIST changes: +ACET650T61 PO; +ASPI-1 PO; +ASPI81TA86 PO; +BUME1TAB3 PO; +CARV12.5 PO; +DOCU100C17 PO; -DOXY100C PO; +DOXY100C3 PO; +ENTR1TAB PO; +EPLE50TA PO; +FEBU40TA4 PO; +FOLI1TAB11 PO; +ISOS1TAB35 PO; -ISOS30TA4 PO; -LISI-538 PO; +LISI20TA33 PO; +MULTCAP PO; +OSTETAB2 PO; +PROAAER10 INH; +SLOWTAB2 PO; +SPIR-10 PO; +Tylenol PM PO; +VITA500C24 PO; +WARF-20 PO; +WARF-58 PO
== END ==
LOC: M LAB REF 17:25
PROVIDERS: ATTEND Internal Medicine Nephrology
DX: E83.42 Hypomagnesemia (principal)

== ENCOUNTER → 2021-01-24 | Outpatient (REF) ==
[~2021-01-24] MED LIST changes: +CLAR10CA3 PO; +MULT-90 PO; +POTA-151 PO; -POTA20TA6 PO; +PROBCAP14 PO; +SPIR50TA4 PO
== END ==
LOC: M LABSMTC 13:43
PROVIDERS: ATTEND Pediatrics
DX: Z11.52 Encounter for screening for COVID-19 (principal)

== ENCOUNTER → 2021-04-23 | Outpatient (REF) | payer MEDICARE | LOC: M SFHCDERM 17:22 | PROVIDERS: ATTEND Physician Assistant | DX: C44.619 Basal cell carcinoma of skin of left upper limb, including shoulder (principal) ==

== ENCOUNTER → 2023-04-05 | Outpatient (REF) | payer MEDICARE ==
[~2023-04-05] MED LIST changes: +ALBU6.7H6 INH; +FLUT1BLS8; +GLIM1TAB4; +GLUC1KIT IM; -HYDR-3910 PO; -HYDR-3911 PO; +HYDR25TA87 PO; +HYDR50TA46 PO; +PROA1AER2 INH; -PROV108A INH
== END ==
LOC: M SFHCWOUN 16:00
PROVIDERS: ATTEND Surgery
DX: R22.42 Localized swelling, mass and lump, left lower limb (principal)